=== PATIENT | male | born 1980 | race Caucasian/White ===

== ENCOUNTER 2016-06-30 06:22 | Emergency (ER) | payer BC, MEDICAID ==
[2016-06-30 06:36] VITALS: BP 188/92
[2016-06-30] MEDS ORDERED: Sodium Chloride 0.9% 10 ML Syringe FLUSH PRN (06:57)
[2016-06-30] MEDS ORDERED: Ondansetron 4 MG/2 ML SDV IVPUSH ONE (06:58)
[2016-06-30] MEDS ORDERED: HYDROmorphone 1 MG/ML Syringe IVPUSH ONE (06:58)
[2016-06-30] MEDS ORDERED: Ketorolac 30 MG/ML SDV IVPUSH ONE (06:59)
[2016-06-30] MEDS ORDERED: Sodium Chloride 0.9% 1,000 ML IV SCH (07:00)
--- NOTE | 2016-06-30 07:13 | EDM.PDOC ---
ED HPI GENERAL MEDICAL PROBLEM - General Chief Complaint: Abdominal Pain Stated Complaint: ABDOMINAL PAIN Time Seen by Provider: 06/30/16 06:53 Source of Information: Reports: Patient History Limitations: Reports: No Limitations - History of Present Illness INITIAL COMMENTS - FREE TEXT/NARRATIVE: The patient presents with left flank and left sided abdominal pain. This started this morning at 3am. He has nausea and vomiting. He has no fever but he does have chills. He has no cough, chest pain or shortness of breath. He has no dysuria or hematuria. He has no history of kidney stones. He still has his gallbladder and appendix. Onset: Sudden Duration: Hour(s): (3am) Location: Reports: Abdomen (left side and left flank) Quality: Reports: Sharp Severity: Severe Improves with: Reports: None Worsens with: Reports: None Associated Symptoms: Reports: Fever/Chills, Nausea/Vomiting. Denies: Chest Pain , Cough, Shortness of Breath Left Abdominal Pain Score (Numeric/FACES): 7 - Related Data Allergies Allergy/AdvReac Type Severity Reaction Status Date / Time No Known Allergies Allergy Verified 06/30/16 06:36 Home Meds: Home Meds Tamsulosin HCl [Flomax] 0.4 mg PO DAILY #7 cap.er.24h 06/30/16 [Rx] oxyCODONE HCl/Acetaminophen [Percocet 5-325 mg Tablet] 1 - 2 each PO Q6HR PRN # 20 tablet 06/30/16 [Rx] Past Medical History - Past Health History Medical/Surgical History: Denies Medical/Surgical History Social & Family History - Tobacco Use Smoking Status *Q: Unknown Ever Smoked Second Hand Smoke Exposure: No - Alcohol Use Days Per Week of Alcohol Use: 1 Number of Drinks Per Day: 3 Total Drinks Per Week: 3 - Recreational Drug Use Recreational Drug Use: No ED ROS GENERAL - Review of Systems Review Of Systems: See Below Constitutional: Reports: No Symptoms HEENT: Reports: No Symptoms Respiratory: Reports: No Symptoms Cardiovascular: Reports: No Symptoms Endocrine: Reports: No Symptoms GI/Abdominal: Reports: Abdominal Pain, Nausea, Vomiting. Denies: Diarrhea : Reports: No Symptoms Musculoskeletal: Reports: No Symptoms Skin: Reports: No Symptoms ED EXAM, RENAL/ - Physical Exam Exam: See Below Exam Limited By: No Limitations General Appearance: Alert, Moderate Distress Ears: Normal External Exam Nose: Normal Inspection Head: Atraumatic, Normocephalic Neck: Normal Inspection Respiratory/Chest: No Respiratory Distress, Lungs Clear, Normal Breath Sounds Cardiovascular: Regular Rate, Rhythm, No Edema, No Murmur GI/Abdominal: Soft, Non-Tender, No Organomegaly, No Mass Back Exam: Normal Inspection Extremities: Normal Inspection Neurological: Alert, Oriented, No Motor/Sensory Deficits Course - Vital Signs Last Recorded V/S: Last Vital Signs Temp 98.5 F 06/30/16 06:33 Pulse 88 06/30/16 06:33 Resp 18 06/30/16 06:33 BP 188/92 H 06/30/16 06:33 Pulse Ox 100 06/30/16 06:33 - Orders/Labs/Meds Orders: Active Orders 24 hr Category Date Time Status Peripheral IV Care [RC] . DIRECTED Care 06/30/16 06:57 Active Abdomen Pelvis wo Cont [CT] Stat Exams 06/30/16 06:57 Stop Req UA W/MICROSCOPIC [URIN] Stat Lab 06/30/16 06:57 Uncollected Sodium Chloride 0.9% [Normal Saline] 1,000 ml Med 06/30/16 07:00 Active IV ASDIRECTED Sodium Chloride 0.9% [Saline Flush] Med 06/30/16 06:57 Active 10 ml FLUSH ASDIRECTED PRN ED Antiemetic Medication Reflex [OM.PC] Stat Oth 06/30/16 06:58 Ordered Peripheral IV Insertion Adult [OM.PC] Stat Oth 06/30/16 06:57 Ordered Medication Orders Sodium Chloride (Normal Saline) 1,000 mls @ 125 mls/hr IV ASDIRECTED MARIA VICTORIA Last Admin: 06/30/16 07:10 Dose: 125 mls/hr Sodium Chloride (Saline Flush) 10 ml FLUSH ASDIRECTED PRN PRN Reason: Keep Vein Open Last Admin: 06/30/16 07:08 Dose: 10 ml Labs: Laboratory Tests 06/30/16 06/30/16 Range/Units 06:40 06:40 WBC 13.51 H (4.23-9.07) K/mm3 RBC 5.30 (4.63-6.08) M/mm3 Hgb 16.0 (13.7-17.5) gm/L Hct 47.2 (40.1-51.0) % MCV 89.1 (79.0-92.2) fl MCH 30.2 (25.7-32.2) pg MCHC 33.9 (32.2-35.5) g/dl RDW Std Deviation 43.5 (35.1-43.9) fL Plt Count 386 H (163-337) K/mm3 MPV 9.5 (9.4-12.3) fl Neut % (Auto) 76.0 H (34.0-67.9) % Lymph % (Auto) 15.4 L (21.8-53.1) % Branch % (Auto) 6.3 (5.3-12.2) % Eos % (Auto) 1.7 (0.8-7.0) Baso % (Auto) 0.3 (0.1-1.2) % Neut # (Auto) 10.27 H (1.78-5.38) K/mm3 Lymph # (Auto) 2.08 (1.32-3.57) K/mm3 Branch # (Auto) 0.85 H (0.30-0.82) K/mm3 Eos # (Auto) 0.23 (0.04-0.54) K/mm3 Baso # (Auto) 0.04 (0.01-0.08) K/mm3 Sodium 142 (136-145) mEq/L Potassium 4.4 (3.5-5.1) mEq/L Chloride 107 (98-107) mEq/L Carbon Dioxide 24 (21-32) mEq/L Anion Gap 15.4 H (5-15) BUN 13 (7-18) mg/dL Creatinine 1.4 H (0.7-1.3) mg/dL Est Cr Clr Drug Dosing TNP Estimated GFR (MDRD) 57 (>60) mL/min BUN/Creatinine Ratio 9.3 L (14-18) Glucose 151 H (74-106) mg/dL Calcium 8.9 (8.5-10.1) mg/dL Total Bilirubin 0.2 (0.2-1.0) mg/dL AST 13 L (15-37) U/L ALT 30 (16-63) U/L Alkaline Phosphatase 77 (46-116) U/L Total Protein 7.4 (6.4-8.2) g/dl Albumin 4.0 (3.4-5.0) g/dl Globulin 3.4 gm/dL Albumin/Globulin Ratio 1.2 (1-2) Lipase 183 (73-393) U/L Meds: Medications Generic Name Dose Route Start Last Admin Trade Name Freq PRN Reason Stop Dose Admin Sodium Chloride 1,000 mls @ 125 mls/hr 06/30/16 07:00 06/30/16 07:10 Normal Saline IV 125 mls/hr ASDIRECTED MARIA VICTORIA Administration Sodium Chloride 10 ml 06/30/16 06:57 06/30/16 07:08 Saline Flush FLUSH 10 ml ASDIRECTED PRN Administration Keep Vein Open Discontinued Medications Generic Name Dose Route Start Last Admin Trade Name Freq PRN Reason Stop Dose Admin Hydromorphone HCl 1 mg 06/30/16 06:58 06/30/16 07:10 Dilaudid IVPUSH 06/30/16 06:59 1 mg ONETIME ONE Administration Ketorolac Tromethamine 30 mg 06/30/16 06:59 06/30/16 07:07 Toradol IVPUSH 06/30/16 07:00 30 mg ONETIME ONE Administration Ondansetron HCl 4 mg 06/30/16 06:58 06/30/16 07:07 Zofran IVPUSH 06/30/16 06:59 4 mg ONETIME ONE Administration - Re-Assessments/Exams Free Text/Narrative Re-Assessment/Exam: 06/30/16 07:13 I ordered an IV NS at 125mL/hr, zofran 4mg IV, dilaudid 1mg IV, toradol 30mg IV , labs, UA, and a CT of his abdomen and pelvis to look for a kidney stone. 06/30/16 07:54 His WBC was elevated at 13.51. His anion gap is elevated at 15.4. His creatinine is elevated at 1.4. He feels better now. He does not want the CT scan. He has insurance that has a high deductible and he does not want to pay the cost of the scan. I explained to him that the CT scan will help us confirm the diagnosis and rule out other possible etiologies for his pain. He is aware of this and would like to not have the test. He also cannot urinate here. He will bring a sample back for us. I will get him on some percocet for pain and flomax. Departure - Departure Time of Disposition: 08:00 Disposition: Home, Self-Care 01 Condition: good Clinical Impression: Kidney stone on left side, Ureteral colic Abdominal pain Qualifiers: Abdominal location: lower abdomen, unspecified Qualified Code(s): R10.30 - Lower abdominal pain, unspecified - Discharge Information Prescriptions: oxyCODONE HCl/Acetaminophen [Percocet 5-325 mg Tablet] 1 - 2 each PO Q6HR PRN # 20 tablet PRN Reason: Pain Tamsulosin HCl [Flomax] 0.4 mg PO DAILY #7 cap.er.24h Referrals: Hetal Lindsey, [employer] [Ordering Only Provider] - Forms: ED Department Discharge Additional Instructions: Drink plenty of fluids such as water and gatorade. Take the flomax daily. Take the percocet as needed for pain. Please return if you are worse such as more uncontrolled pain, nausea, vomiting, fever or chills. Follow up with Hetal Lindsey next week. Take an antiinflammatory such as motrin or aleve for the pain as well. - My Orders Last 24 Hours: My Active Orders 06/30/16 06:57 Peripheral IV Care [RC] . DIRECTED Abdomen Pelvis wo Cont [CT] Stat UA W/MICROSCOPIC [URIN] Stat Sodium Chloride 0.9% [Saline Flush] 10 ml FLUSH ASDIRECTED PRN Peripheral IV Insertion Adult [OM.PC] Stat 06/30/16 06:58 ED Antiemetic Medication Reflex [OM.PC] Stat 06/30/16 07:00 Sodium Chloride 0.9% [Normal Saline] 1,000 ml IV ASDIRECTED - Assessment/Plan Last 24 Hours: My Active Orders 06/30/16 06:57 Peripheral IV Care [RC] . DIRECTED Abdomen Pelvis wo Cont [CT] Stat UA W/MICROSCOPIC [URIN] Stat Sodium Chloride 0.9% [Saline Flush] 10 ml FLUSH ASDIRECTED PRN Peripheral IV Insertion Adult [OM.PC] Stat 06/30/16 06:58 ED Antiemetic Medication Reflex [OM.PC] Stat 06/30/16 07:00 Sodium Chloride 0.9% [Normal Saline] 1,000 ml IV ASDIRECTED
== END 2016-06-30 08:10 | disposition home or self-care (01) ==
LOC: JD.ED 06:22
DX: N20.2 Calculus of kidney with calculus of ureter (principal); Z79.899 Other long term (current) drug therapy
CPT/HCPCS: 36415; 80053; 81001; 83690; 85025; 96361; 96374; 96375; 99284; J1170; J1885; J2405; J7040; J7050